=== PATIENT | female | born 1990 | race African-American/Black ===

== ENCOUNTER 2017-07-01 05:21 | Day surgery (SDC) | payer OTHER ==
[2017-06-25 13:01] VITALS: BMI 27.4
--- NOTE | 2017-07-01 08:14 | HP ---
Satellite [facility] - Chief Complaint Chief Complaint: Ovarian Cystectomy History Source: Patient - Past Medical History Allergies/Adverse Reactions: Allergies Allergy/AdvReac Type Severity Reaction Status Date / Time No Known Allergies Allergy Verified 07/01/17 07:04 ...LMP: 06/18/17 - Current Medications Current Medications: Home Medications Medication Instructions Recorded Isoniazid [INH -] 100 mg PO HS 06/25/17 Pyridoxine HCl [Vitamin B-6] 1 mg PO HS 06/25/17 Satellite Physical Exam - Physical Examination Vital Signs: Vital Signs Period Temp Pulse Resp BP Sys/Thornton Pulse Ox Last 24 Hr 98.3 F 62 16 110/74 100 General Appearance: Well Nourished ENT: Clear Lung: Clear to auscultation Heart: Regular rate & rhythm Breasts: Soft, Non-Tender Abdomen: Soft, No tenderness Extremities: No edema Neurological: Intact, Alert, Oriented Satellite Impression/Plan - Impression/Plan Impression: Ovarian Cyst Operative Procedure: Laparoscopic robotic ovarian cystectomy Date to be Performed: 07/01/17
--- NOTE | 2017-07-01 08:18 | OP ---
Operative Note - Note: Operative Date: 07/01/17 Pre-Operative Diagnosis: Ovarian cyst. Abdominal Pain Operation: Laparoscopic Robotic Cystectomy Findings: Right Dermoid ovarian cyst right corpus luteal cyst Post-Operative Diagnosis: Same as Pre-op Surgeon: Eda Cantu Web Application Developer: Aria Srinivasan Anesthesia: General Operative Report Dictated: Yes
[2017-07-01] MEDS ORDERED: oxyCODONE HCL 5 MG TABLET PO PRN (08:20)
[2017-07-01] MEDS ORDERED: IBUPROFEN 400 MG TABLET (FP) PO PRN (08:20)
[2017-07-01] MEDS ORDERED: ACETAMINOPHEN 325 MG TABLET (FP) PO PRN (08:20)
[2017-07-01] MEDS ORDERED: BUPIVACAINE HCL/PF 0.5% (5MG/ML) 10 ML VIAL ONE (08:26)
[2017-07-01] MEDS ORDERED: ceFAZolin SODIUM 1 GM VIAL IVPB ONE (08:30)
[2017-07-01] MEDS ORDERED: BUPIVACAINE HCL/PF 0.5% (5MG/ML) 10 ML VIAL IJ ONE ×2 (08:41)
[2017-07-01] MEDS ORDERED: PROMETHAZINE HCL 25 MG/1 ML VIAL IVPUSH PRN (09:51)
[2017-07-01] MEDS ORDERED: LACTATED RINGERS SOLUTION 1,000 ML IV SCH (10:00)
[2017-07-01 12:55] VITALS: TEMP 97.5
[2017-07-01 14:27] VITALS: BP 108/73; PULSE 61
--- NOTE | 2017-07-02 08:52 | OP ---
DATE OF OPERATION: 07/01/2017 PREOPERATIVE DIAGNOSIS: Right ovarian cyst. OPERATION: Laparoscopic, robotic ovarian cystectomy. POSTOPERATIVE DIAGNOSIS: Right ovarian cyst. SURGEON: Gordon Martinez MD LOOM CONTROL CHAIN BUILDER: Aria Srinivasan DO ANESTHESIA: General. ANESTHESIOLOGIST: Silvio Dyer MD DESCRIPTION OF PROCEDURE: Patient was taken to the operating room and placed in dorsal lithotomy position, prepped and draped in the usual sterile fashion. A timeout was performed in accordance to hospital regulation. Ramirez catheter was inserted into the bladder. Attention was then drawn to the umbilicus where a 5-mm umbilical incision was made. A Veress needle was inserted into the cavity. Approximately 3-4 L of CO2 were insufflated in the cavity. Veress needle was then removed, and an 8-mm trocar was then inserted. Laparoscope and camera were attached. A vessel sealer port was inserted after scalpel incision was made in the upper abdomen. Another 8-mm incision was made parallel on the left side, and 2 right-sided 8-mm incisions were made on the left. Trocars were all inserted under direct visualization. Patient was placed in steep Trendelenburg, and the da Regan robot was side docked to the patient's bedside. Trocars were then inserted onto the da Regan robot. After all ports were confirmed placement, the bipolar and scissors was inserted on the right, and the Maryland was inserted on the left side under direct visualization. Attention was then drawn to the console where control of the console was done. The right cyst was noted to be about 5 cm in size and 2 cysts, a corpus luteal cyst as well as a dermoid cyst. Cautery was then used to open the dermoid cyst which was 5 cm. The corpus luteal cyst was about 3 cm. Ovarian cystectomy was then performed, and cysts were removed. Lots of hair was seen coming out of the cyst and possibly a tooth in the ovary. The corpus luteal cyst was also entered using EndoShears, and Maryland and bipolar were then used to remove the corpus luteal cyst away from the right ovary. Hemostasis was achieved using coagulation, and hemostasis was achieved. After hemostasis was achieved, irrigation was then done. An endobag was then inserted, and the specimen was then removed. Hemostasis was achieved. The abdomen was then suctioned. Trocars were then removed with instruments under direct visualization. Incisions were then closed using 4-0 Biosyn in subcuticular fashion. Wound was washed and dressed. Patient had tolerated the procedure well. Estimated blood loss was 25 mL. All incisions were closed. Steri-Strips placed. Wound was washed and dressed. Patient had tolerated the procedure well, was taken to recovery room in stable condition. GORDON MARTINEZ M.D. KISHAN/[id number]
--- NOTE | 2017-07-02 17:03 | PATH ---
Surgical Pathology Report Patient Name: MELY YORK [facility]. Rec. #: [id number] /Age/Gender: 1990 (Age: 27) / F Account: [id number] Location: [facility] SURGICAL Taken: 07/01/2017 Received: 07/01/2017 Reported: 07/02/2017 Physicians: Eda Cantu M.D. Specimen(s) Received RIGHT OVARIAN CYST Clinical History Ovarian cyst Final Diagnosis RIGHT OVARIAN CYST, EXCISION: MATURE CYSTIC TERATOMA. HEMORRHAGIC CORPUS LUTEUM PRESENT. NO IMMATURE ELEMENTS OR MALIGNANT FEATURES IDENTIFIED. Electronically Signed Kiran Montana M.D. Gross Description Received in formalin, labeled "right ovarian cyst" is a 22 gram, 5.5 x 5.5 x 2.2 cm aggregate of long and briceno tissue fragments along with abundant air. Portions of the tissue have a cystic configuration. Calcified material is present, and and in some areas it is grossly suggestive of portions of tooth. Housing Inspector sections are submitted in 4 cassettes with cassette for submitted for decalcification. [facility]/07/01/2017 [facility]/07/01/2017
== END 2017-07-01 14:00 | disposition home or self-care (01) ==
LOC: JASU-SURG 05:21
PROVIDERS: ATTEND Obstetrics & Gynecology
PROC: 0UB04ZZ Excision of Right Ovary, Percutaneous Endoscopic Approach (ICD-10-PCS; principal; 2017-07-01 08:00)
DX: N83.201 Unspecified ovarian cyst, right side (principal)
CPT/HCPCS: 84703; 88307-TC; 88311-TC; 94760

== ENCOUNTER 2018-02-17 15:40 | Emergency (ER) | payer OTHER ==
[2018-02-17 15:46] VITALS: BP 128/81; PULSE 88; TEMP 98.7; BMI 27.1
--- NOTE | 2018-02-17 15:47 | PDOC ---
Rapid Medical Evaluation Time Seen by Provider: 02/17/18 15:42 Medical Evaluation: Allergies Allergy/AdvReac Type Severity Reaction Status Date / Time No Known Allergies Allergy Verified 07/01/17 07:04 02/17/18 15:42 Having chest pain for 2 weeks intermittently. No recent injury travel, , no control use, Was seen in her MD office one week ago and was sent to a specilaist oil processing technician but doese not go for 2 days. ordered -ekg -cxr -ua -labs
[2018-02-17 18:33] LABS: HCG,QUALITATIVE URINE NEGATIVE
[2018-02-17 18:46] LABS: URINE APPEARANCE CLEAR; URINE BILIRUBIN NEGATIVE (<2.0 mg/dL); URINE BLOOD NEGATIVE (NEGATIVE); URINE COLOR STRAW; URINE GLUCOSE (UA) NEGATIVE (NEGATIVE); URINE KETONE NEGATIVE (NEGATIVE); URINE LEUK ESTERASE NEGATIVE (NEGATIVE); URINE NITRITE NEGATIVE (NEGATIVE); URINE PROTEIN NEGATIVE (NEGATIVE); URINE UROBILINOGEN NEGATIVE mg/dL (0.2-1.0)
[2018-02-17 19:23] LABS: EOS % 0.5 % (0-4.5); HEMATOCRIT 40.5 % (32.4-45.2); HEMOGLOBIN 13.7 GM/dL (10.7-15.3); LYMPH % 42.9 % (8-40); MCH 31.1 pg (25.7-33.7); MCHC 33.8 g/dl (32.0-36.0); MEAN CELL VOLUME 91.8 fl (80-96); MEAN PLT VOLUME 8.2 fl (7.5-11.1); MONO % 6.7 % (3.8-10.2); NEUT % 48.9 % (42.8-82.8); PLATELET COUNT 226 K/MM3 (134-434); RBC 4.41 M/mm3 (3.60-5.2); RDW 13.8 % (11.6-15.6)
[2018-02-17 19:54] LABS: ANION GAP 3 (8-16); BILIRUBIN,TOTAL 0.7 mg/dL (0.2-1.0); BLOOD UREA NITROGEN 12 mg/dL (7-18); CALCIUM 9.1 mg/dL (8.5-10.1); CHLORIDE 106 mmol/L (98-107); CO2 30 mmol/L (21-32); CREATININE 0.8 mg/dL (0.55-1.02); GLUCOSE,RANDOM 102 mg/dL (74-106); POTASSIUM 3.8 mmol/L (3.5-5.1); SGOT/AST 15 U/L (15-37); SGPT/ALT 27 U/L (12-78); SODIUM 139 mmol/L (136-145); TOT PROT 7.7 g/dl (6.4-8.2)
[2018-02-17 19:56] LABS: ALK PHOS 52 U/L (45-117)
--- NOTE | 2018-02-17 21:13 | PDOC ---
History of Present Illness - General History Source: Patient Exam Limitations: No Limitations <AlonsoSulaiman scott - Last Filed: 02/17/18 22:59> - General History Source: Patient Exam Limitations: No Limitations - History of Present Illness Initial Comments: 02/18/18 01:02 The patient is a 27 year old female with a PMH of a positive PPD test who presents to the emergency department with intermittent chest pain that began earlier today. The patient reports that she was at work today just standing up when the chest pain started. The patient describes her chest pain as sharp and lasts for about two minutes. The patient reports that she has been experiencing this sudden onset of intermittent chest pain for about 2 weeks. She reports that her chest pain radiates down to her upper left quadrant. The patient reports associated SOB when she gets her chest pain . She states that her SOB does not last long and is non exertional. The patient reports associated nausea and 1 episode of nausea earlier today when leaving work. The patient denies any abdominal pain , back pain, calf pain or cough. She denies any headache or dizziness. She denies any recent travel, hemoptysis, lower extremity swelling. The patient denies any fever chills, diarrhea or constipation. She Denies dysuria, frequency, urgency and hematuria. Allergies: NKA Past surgical history: Ovarian cyst removal Social history: No reported PCP: Dr. De Jesus <Hu Linder - Last Filed: 02/18/18 01:04> - General Chief Complaint: Chest Pain Stated Complaint: CHEST PAIN Time Seen by Provider: 02/17/18 15:42 Past History - Past Medical History Anemia: No Asthma: No Cancer: No Cardiac Disorders: No CVA: No COPD: No (HX OF T.B ON MEDS) CHF: No Dementia: No Diabetes: No GI Disorders: No Disorders: No HTN: No Hypercholesterolemia: No Liver Disease: No Seizures: No Thyroid Disease: No - Surgical History Abdominal Surgery: Yes (CYST OVARIES) - Suicide/Smoking/Psychosocial Hx Smoking Status: No Smoking History: Never smoked Have you smoked in the past 12 months: No Number of Cigarettes Smoked Daily: 0 Information on smoking cessation initiated: No Hx Alcohol Use: No Drug/Substance Use Hx: No Substance Use Type: None Hx Substance Use Treatment: No <Sulaiman Gupta - Last Filed: 02/17/18 22:59> <Hu Linder - Last Filed: 02/18/18 01:04> - Past Medical History Allergies/Adverse Reactions: Allergies Allergy/AdvReac Type Severity Reaction Status Date / Time No Known Allergies Allergy Verified 02/17/18 15:42 Home Medications: Ambulatory Orders Isoniazid [INH -] 100 mg PO HS 06/25/17 Pyridoxine HCl (Vitamin B6) [Vitamin B-6] 1 mg PO HS 06/25/17 Review of Systems - Review of Systems Able to Perform ROS?: Yes Comments:: 02/18/18 01:02 CONSTITUTIONAL: No reported: Fever, Chills, Diaphoresis, Generalized Weakness, Malaise, Loss of Appetite HEENT: No reported: Rhinorrhea, Nasal Congestion, Throat Pain, Throat Swelling, Difficulty Swallowing, Mouth Swelling, Ear Pain, Eye Pain, Visual Changes CARDIOVASCULAR: Reported(+) Chest pain No reported: Syncope, Palpitations, Irregular Heart Rate, Lightheadedness, Peripheral Edema RESPIRATORY: Reported No reported: Cough, Shortness of Breath, SHIELDS, Orthopnea, Wheezing, Stridor, Hemoptysis GASTROINTESTINAL: No reported: Abdominal pain, Abdominal Distension, Nausea, Vomiting, Diarrhea, Constipation, Melena, Hematochezia GENITOURINARY: No reported: Dysuria, Frequency, Urgency, Hesitancy, Flank Pain, Genital Pain MUSCULOSKELETAL: No reported: Myalgia, Arthralgia, Joint Swelling, Back pain, Neck Pain SKIN: No reported: Rash, Itching, Pallor HEMEATOLOGIC/IMMUNOLOGIC: No reported: Easy Bleeding, Easy Bruising, Lymphadenopathy, Frequent infections ENDOCRINE: No reported: Unexplained Weight Gain, Unexplained Weight Loss, Heat Intolerance , Cold Intolerance NEUROLOGIC: No reported: Headache, Focal Weakness, Paresthesias, Vertigo, Lightheadedness, Unsteady Gait, Seizure, Mental Status Changes, Incontinence PSYCHIATRIC: No reported: Anxiety, Depression <Hu Linder - Last Filed: 02/18/18 01:04> *Physical Exam - Vital Signs Last Vital Signs Temp Pulse Resp BP Pulse Ox 98.7 F 88 18 128/81 100 02/17/18 15:44 02/17/18 15:44 02/17/18 15:44 02/17/18 15:44 02/17/18 15:44 <Sulaiman Gupta - Last Filed: 02/17/18 22:59> - Vital Signs Last Vital Signs Temp Pulse Resp BP Pulse Ox 98.7 F 88 18 128/81 100 02/17/18 15:44 02/17/18 15:44 02/17/18 15:44 02/17/18 15:44 02/17/18 15:44 - Physical Exam Comments: 02/18/18 01:03 GENERAL: The patient is awake, alert, and fully oriented, Nontoxic - in no acute distress. HEAD: Normocephalic, atraumatic. EYES: extraocular movements intact, sclera anicteric, conjunctiva clear. ENT: Normal voice, Moist mucous membranes. NECK: Normal range of motion, supple without lymphadenopathy, JVD, or masses. LUNGS: Breath sounds equal, clear to auscultation bilaterally. No wheezes, no crackles, no rales. HEART: Regular rate and rhythm, normal S1 and S2 without murmur, rub or gallop. ABDOMEN: Soft, nontender, normoactive bowel sounds. No guarding, no rebound. No masses. EXTREMITIES: Normal range of motion, no edema. No clubbing or cyanosis. No cords, erythema, or tenderness. NEUROLOGICAL: No facial assymetry, Normal speech, normal gait. PSYCH: Normal mood, normal affect. SKIN: Warm, Dry, normal turgor, no rashes or lesions noted. <Hu Linder - Last Filed: 02/18/18 01:04> Heart Score/ECG Review - ECG Impressions Comment:: 02/17/18 21:15 Twelve-lead EKG was performed and reviewed by me. There is normal sinus rhythm with a normal rate. Rate of 71 The axis is normal. The intervals are normal. There is normal R wave progression There are no ST or T wave abnormalities. <Sulaiman Gupta - Last Filed: 02/17/18 22:59> ED Treatment Course - LABORATORY CBC & Chemistry Diagram: 02/17/18 19:10 02/17/18 19:10 - ADDITIONAL ORDERS Additional order review: Laboratory Results 02/17/18 02/17/18 19:10 18:18 Sodium 139 Potassium 3.8 Chloride 106 Carbon Dioxide 30 Anion Gap 3 L BUN 12 Creatinine 0.8 Creat Clearance w eGFR > 60 Random Glucose 102 Calcium 9.1 Total Bilirubin 0.7 D AST 15 ALT 27 Alkaline Phosphatase 52 Creatine Kinase 155 Troponin I < 0.02 Total Protein 7.7 Albumin 4.0 Urine Color Straw Urine Appearance Clear Urine pH 7.0 Ur Specific [place] 1.005 Urine Protein Negative Urine Glucose (UA) Negative Urine Ketones Negative Urine Blood Negative Urine Nitrite Negative Urine Bilirubin Negative Urine Urobilinogen Negative Ur Leukocyte Esterase Negative Urine HCG, Qual Negative 02/17/18 19:10 RBC 4.41 MCV 91.8 MCHC 33.8 RDW 13.8 MPV 8.2 Neutrophils % 48.9 Lymphocytes % 42.9 H Monocytes % 6.7 Eosinophils % 0.5 D Basophils % 1.0 <Sulaiman Gupta - Last Filed: 02/17/18 22:59> - LABORATORY CBC & Chemistry Diagram: 02/17/18 19:10 02/17/18 19:10 - ADDITIONAL ORDERS Additional order review: Laboratory Results 02/17/18 02/17/18 19:10 18:18 Sodium 139 Potassium 3.8 Chloride 106 Carbon Dioxide 30 Anion Gap 3 L BUN 12 Creatinine 0.8 Creat Clearance w eGFR > 60 Random Glucose 102 Calcium 9.1 Total Bilirubin 0.7 D AST 15 ALT 27 Alkaline Phosphatase 52 Creatine Kinase 155 Troponin I < 0.02 Total Protein 7.7 Albumin 4.0 Urine Color Straw Urine Appearance Clear Urine pH 7.0 Ur Specific [place] 1.005 Urine Protein Negative Urine Glucose (UA) Negative Urine Ketones Negative Urine Blood Negative Urine Nitrite Negative Urine Bilirubin Negative Urine Urobilinogen Negative Ur Leukocyte Esterase Negative Urine HCG, Qual Negative 02/17/18 19:10 RBC 4.41 MCV 91.8 MCHC 33.8 RDW 13.8 MPV 8.2 Neutrophils % 48.9 Lymphocytes % 42.9 H Monocytes % 6.7 Eosinophils % 0.5 D Basophils % 1.0 <Hu Linder - Last Filed: 02/18/18 01:04> Medical Decision Making - Medical Decision Making 02/17/18 21:15 02/17/18 21:09 27y 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 pt currenltly asypmtomatic pts exam unremarakble ddx - doubt acs, trop neg x 1 ?esopageal vs muscular spasms? no correlation to maxi dto suggest GI etiology inconsistent with pe/dissection ekg wnl trops, cbc, cmp wnl will obtain cxr, if neg for pulm pathology will dc with card fu on saturday as scheduled 02/17/18 22:59 cxr negative pt feeling asymtomatic will dc with pmd fu return precautions were discussed I discussed the physical exam findings, ancillary test results and final diagnoses with the patient. I answered all of the patient's questions. The patient was satisfied with the care received and felt comfortable with the discharge plan and treatment plan. The patient will call their primary care physician within 24 hours to arrange follow-up and will return to the Emergency Department with any new, persistent or worsening symptoms. <Sulaiman Gupta - Last Filed: 02/17/18 22:59> *DC/Admit/Observation/Transfer - Discharge Dispostion Admit: No <Sulaiman Gupta - Last Filed: 02/17/18 22:59> - Attestations Scribe Attestion: 02/18/18 01:04 Documentation prepared by Hu Linder, acting as biomedical photographer for Sulaiman Gupta MD. <Hu Linder - Last Filed: 02/18/18 01:04> Diagnosis at time of Disposition: Atypical chest pain - Discharge Dispostion Disposition: HOME Condition at time of disposition: Improved - Referrals Referrals: Cecy De Jesus [Primary Care Provider] - - Patient Instructions Printed Discharge Instructions: DI for Atypical Chest Pain Additional Instructions: Return to the emergency department immediately with ANY new, persistent or worsening symptoms including worsening pain, sob, or other concerns. You MUST call and follow up with your vegetable grower as scheduled on saturday for further evaluation of your symptoms. Results were discussed with you. Please make sure your doctor reviews the results of your emergency evaluation. - Post Discharge Activity
--- NOTE | 2018-02-18 10:37 | EKG ---
Test Reason : Blood Pressure : / mmHG Vent. Rate : 071 BPM Atrial Rate : 071 BPM P-R Int : 140 ms QRS Dur : 084 ms QT Int : 390 ms P-R-T Axes : 056 055 055 degrees QTc Int : 423 ms NORMAL SINUS RHYTHM POSSIBLE LEFT ATRIAL ENLARGEMENT BORDERLINE ECG NO PREVIOUS ECGS AVAILABLE Confirmed by MD Fredy, Bhupendra ([id number]) on 02/18/2018 10:36:50 AM Referred By: Confirmed By:Bhupendra Daniel MD
== END 2018-02-17 23:05 | disposition home or self-care (01) ==
LOC: JER 15:40
DX: R07.89 Other chest pain (principal); R76.11 Nonspecific reaction to tuberculin skin test without active tuberculosis
CPT/HCPCS: 36415; 71046-TC-FY; 80053; 81003; 82550; 82553; 84484; 84703; 85025; 93005; 93010; 99283-25

== ENCOUNTER 2018-05-18 11:48 | Emergency (ER) | payer OTHER ==
[2018-05-18 11:53] VITALS: BP 113/66; PULSE 79; TEMP 98.4; BMI 27.4
--- NOTE | 2018-05-18 12:36 | PDOC ---
History of Present Illness - General Chief Complaint: Eye Problem Stated Complaint: EYE PROBLEM Time Seen by Provider: 05/18/18 11:54 History Source: Patient Exam Limitations: No Limitations - History of Present Illness Initial Comments: CHIEF COMPLAINT: 28 y/o female with left eye injury. HISTORY OF PRESENT ILLNESS: The patient states she scratched her left eye with the corner of a menu last night. She states her vision is fine but it feels like there is sand in her eye. She does not wear contacts or glasses. Past History - Past Medical History Allergies/Adverse Reactions: Allergies Allergy/AdvReac Type Severity Reaction Status Date / Time No Known Allergies Allergy Verified 05/18/18 11:53 Home Medications: Ambulatory Orders Isoniazid [INH -] 100 mg PO HS 06/25/17 Pyridoxine HCl (Vitamin B6) [Vitamin B-6] 1 mg PO HS 06/25/17 Sulfacetamide Sodium 10% [Bleph-10] 2 drop OS Q2H #150 drops 05/18/18 Anemia: No Asthma: No Cancer: No Cardiac Disorders: No CVA: No COPD: No (HX OF T.B ON MEDS) CHF: No Dementia: No Diabetes: No GI Disorders: No Disorders: No HTN: No Hypercholesterolemia: No Liver Disease: No Seizures: No Thyroid Disease: No - Surgical History Abdominal Surgery: Yes (CYST OVARIES) - Suicide/Smoking/Psychosocial Hx Smoking Status: No Smoking History: Never smoked Have you smoked in the past 12 months: No Number of Cigarettes Smoked Daily: 0 Hx Alcohol Use: No Drug/Substance Use Hx: No Substance Use Type: None Hx Substance Use Treatment: No Review of Systems - Review of Systems Able to Perform ROS?: Yes Constitutional: No: Symptoms Reported HEENTM: Yes: Eye Pain (left eye). No: Blurred Vision, Tearing, Double Vision Neurological: No: Headache, Paresthesia *Physical Exam - Vital Signs Last Vital Signs Temp Pulse Resp BP Pulse Ox 98.4 F 79 18 113/66 99 05/18/18 11:50 05/18/18 11:50 05/18/18 11:50 05/18/18 11:50 05/18/18 11:50 - Physical Exam Comments: The patient is well appearing and ambulatory. General Appearance: Yes: Nourished, Appropriately Dressed. No: Apparent Distress HEENT: positive: EOMI, DEIDRE, Other (Fleurescein exam shows abrasion to left lower outer cornea) Neurologic: positive: para operator II-XII NML intact, Fully Oriented, Alert, Normal Mood/ Affect, Motor Strength 5/5 Medical Decision Making - Medical Decision Making A/P: 28 y/o female with left corneal abrasion. Will discharge to home with rx for bleph -10. Instructed her to avoid tv screens, phone screens, computer screens and sunlight until feeling better, use drops as prescribed and f/u with Dr. Webster tomorrow. The patient verbalizes understanding of all instructions, has no further questions and is awaiting discharge. *DC/Admit/Observation/Transfer Diagnosis at time of Disposition: Corneal abrasion, left Qualifiers: Encounter type: initial encounter Qualified Code(s): S05.02XA - Injury of conjunctiva and corneal abrasion without foreign body, left eye, initial encounter - Discharge Dispostion Disposition: HOME Condition at time of disposition: Good - Referrals Referrals: Opal Webster MD [Staff Physician] - - Patient Instructions Printed Discharge Instructions: DI for Corneal Abrasion Additional Instructions: Discharge INstructions: -You have a corneal abrasion; it should heal on its own -Eye drops were sent to your pharmacy; please use as prescribed -Call Dr. Webster tomorrow to schedule a follow up appointment for as soon as possible -Avoid television screens, computer screens, phone screens and the sunlight until feeling better. -Return to the ER with any worsening or concerning symptoms. - Post Discharge Activity Forms/Work/School Notes: Back to Work
== END 2018-05-18 12:51 | disposition home or self-care (01) ==
LOC: JERFT 11:48
DX: S05.02XA Injury of conjunctiva and corneal abrasion without foreign body, left eye, initial encounter (principal); W22.8XXA Striking against or struck by other objects, initial encounter; Y93.89 Activity, other specified; Y92.89 Other specified places as the place of occurrence of the external cause; Y99.8 Other external cause status; Z86.11 Personal history of tuberculosis
CPT/HCPCS: 99281-25

== ENCOUNTER 2018-09-04 07:55 | Day surgery (SDC) | payer OTHER ==
[2018-09-03 12:38] VITALS: BMI 28.2
--- NOTE | 2018-09-04 08:49 | HP ---
History & Physical Update - History History: No Change - Physical Physical: No Change - Assessment Assessment: No Change - Plan Plan: No Change (Carmenza presents for elective Robotic assisted lap ovarian cystecomy, no change since visit with Dr Cantu on 09/02)
[2018-09-04] MEDS ORDERED: oxyCODONE HCL 5 MG TABLET PO PRN ×2 (09:03)
[2018-09-04] MEDS ORDERED: ONDANSETRON 4 MG/2 ML VIAL IVPUSH PRN (09:03)
[2018-09-04] MEDS ORDERED: LACTATED RINGERS SOLUTION 1,000 ML IV SCH (09:15)
--- NOTE | 2018-09-04 09:20 | OP ---
Operative Note - Note: Operative Date: 09/04/18 Pre-Operative Diagnosis: right ovarian cyst Operation: Robotic laparoscopic ovarian cystectomy Findings: right dermoid cyst Post-Operative Diagnosis: Same as Pre-op Surgeon: Eda Cantu Passenger Service Supervisor: Breanne Liu Anesthesia: General Estimated Blood Loss (mls): 50 Operative Report Dictated: Yes
[2018-09-04] MEDS ORDERED: ceFAZolin SODIUM 1 GM VIAL IVPB ONE (09:27)
[2018-09-04] MEDS ORDERED: BUPIVACAINE HCL/PF 0.5% (5MG/ML) 10 ML VIAL ONE (10:09)
[2018-09-04] MEDS ORDERED: BUPIVACAINE HCL/PF 0.5% (5MG/ML) 10 ML VIAL IJ ONE (10:34)
--- NOTE | 2018-09-04 10:57 | SURG ---
Surgery Reservations Agent Note Reservations Agent: Karis Ramírez PA-C Date of Service: 09/04/18 Diagnosis: ovarian cyst Procedure: Robotic assisted laparoscopic ovarian cystectomy I was present for the entirety of the operative procedure. For further detail, please refer to operative report. Visit type - Case Type Case Type: Scheduled - New patient This patient is new to me today: Yes Date on this admission: 09/04/18
[2018-09-04] MEDS ORDERED: oxyCODONE HCL 5 MG TABLET ONE (14:31)
[2018-09-04 15:44] VITALS: TEMP 97.8
[2018-09-04 16:34] VITALS: BP 105/69; PULSE 92
--- NOTE | 2018-09-05 15:44 | PATH ---
Surgical Pathology Report Patient Name: MELY YORK [facility]. Rec. #: [id number] /Age/Gender: 1990 (Age: 28) / F Account: [id number] Location: [facility] SURGICAL Taken: 09/04/2018 Received: 09/04/2018 Reported: 09/05/2018 Physicians: Eda Cantu M.D. Specimen(s) Received DERMOID CYST OVARIAN RIGHT Clinical History Ovarian cyst Final Diagnosis OVARY, RIGHT, CYST, ROBOTIC LAPAROSCOPIC CYSTECTOMY: OVARY WITH MATURE CYSTIC TERATOMA. Electronically Signed Kady Cullen M.D. Gross Description Received in formalin labeled "dermoid ovarian right cyst," is a 6.0 x 5.4 x 1.2 cm portion of a markedly disrupted cyst. The outer surface is long-pink and smooth. There is hair present within the lumen. Sectioning reveals focal yellow soft tissue within the cyst wall. No normal ovarian parenchyma is identified. Slitting Machine Feeder sections are submitted in 7 cassettes. saudi/09/04/2018
--- NOTE | 2018-11-07 14:22 | OP ---
DATE OF OPERATION: 09/04/2018 PREOPERATIVE DIAGNOSIS: Right ovarian cyst. OPERATION: Robotic right laparoscopic ovarian cystectomy. POSTOPERATIVE DIAGNOSIS: Right dermoid cyst. SURGEON: Eda Cantu MD EXHIBITION DESIGNER: Karis Ramírez ANESTHESIA: General. ANESTHESIOLOGIST: Guero Gross MD PROCEDURE: Patient was taken to the operating room, placed in dorsal lithotomy position, prepped and draped in the usual sterile fashion. A timeout was performed in accordance with hospital regulation. A Ramirez catheter was inserted into the bladder, after patient had been prepped and draped. Attention was then drawn to the umbilicus where an 8-mm umbilical incision was made. Veress needle was inserted into the cavity. Approximately 3-4 L of CO2 was insufflated in the cavity. Veress needle was then removed and an 8-mm trocar was then inserted. The laparoscope and camera was attached. Visualization revealed a right ovarian cyst, left ovary was normal, tubes were normal. Trocars were placed two on the left and two on the right under direct visualization, 8 mm incisions were made parallel to the incision, and one upper left 5-mm incision was then made. AirSeal cannula was inserted. Trocar was inserted. Laparoscope and camera was attached, after da Regan robot was side docked to patient's bedside. Trocars were then inserted. Instruments were then inserted under direct visualization, Endoshears were inserted, bipolar grasper, as well as another marley was inserted on the right side. Attention was then drawn to the console where visualization revealed a right ovarian cyst. Grasp of the cyst was then done with the bipolars and the [place] and cyst was entered with the Endoshears. Grasper was then used to remove the right dermoid cyst which was hidden into another cyst. Using sharp and blunt technique, the dermoid cyst was then removed. Cauterization of the ovary was then done. Hemostasis was achieved. Ovary was left in good condition. Dermoid cyst was then removed through the trocar, after placed in the bag. CO2 was removed from the abdomen. The da Regan robot was undocked and removed from the patient's bedside. Trocars were then removed. Incisions were closed using 4-0 Biosyn suture in subcuticular fashion. The wound was washed and dressed. Patient tolerated procedure well. Estimated blood loss was 50 mL. Ramirez catheter was then removed from the patient. The wound was washed and dressed. Patient tolerated procedure well and was taken to recovery room in stable condition. Poppy [id number] MTDD
== END 2018-09-04 16:35 | disposition home or self-care (01) ==
LOC: JASU-SURG 07:55
PROVIDERS: ATTEND Obstetrics & Gynecology
PROC: 0UB04ZZ Excision of Right Ovary, Percutaneous Endoscopic Approach (ICD-10-PCS; principal; 2018-09-04 10:00)
DX: D27.0 Benign neoplasm of right ovary (principal)
CPT/HCPCS: 88305-TC; 94760

== ENCOUNTER 2019-01-09 07:30 | Emergency (ER) | payer OTHER ==
[2019-01-09 08:03] VITALS: BP 122/73; PULSE 66; TEMP 98.2; BMI 29.0
--- NOTE | 2019-01-09 08:25 | PDOC ---
History of Present Illness - General History Source: Patient - History of Present Illness Timing/Duration: reports: getting worse <Alissa WattMelissa - Last Filed: 01/09/19 10:27> <Aletha Dupont - Last Filed: 01/11/19 09:47> - General Chief Complaint: Pain Stated Complaint: ABD PAIN/LOWER BACK PAIN Time Seen by Provider: 01/09/19 08:22 Past History - Past Medical History Anemia: No Asthma: No Cancer: No Cardiac Disorders: No CVA: No COPD: No CHF: No Dementia: No Diabetes: No GI Disorders: No Disorders: No HTN: No Hypercholesterolemia: No Liver Disease: No Seizures: No Thyroid Disease: No - Surgical History Abdominal Surgery: Yes (CYST OVARIES) - Immunization History Immunization Up to Date: Yes - Suicide/Smoking/Psychosocial Hx Smoking Status: No Smoking History: Never smoked Have you smoked in the past 12 months: No Number of Cigarettes Smoked Daily: 0 Information on smoking cessation initiated: No Hx Alcohol Use: No Drug/Substance Use Hx: No Substance Use Type: Alcohol Hx Substance Use Treatment: No <Nita Watt - Last Filed: 01/09/19 10:27> <Aletha Dupont - Last Filed: 01/11/19 09:47> - Past Medical History Allergies/Adverse Reactions: Allergies Allergy/AdvReac Type Severity Reaction Status Date / Time No Known Allergies Allergy Verified 01/09/19 07:47 Home Medications: Ambulatory Orders Oxycodone HCl/Acetaminophen [Percocet 5-325 mg Tablet] 1 - 2 tab PO Q4H PRN #20 tablet MDD 6 09/04/18 Review of Systems - Review of Systems Constitutional: No: Chills, Fever : No: Burning, Dysuria, Discharge, Flank Pain, Hematuria, Lesions Musculoskeletal: Yes: Back Pain <Nita Watt - Last Filed: 01/09/19 10:27> *Physical Exam - Vital Signs Last Vital Signs Temp Pulse Resp BP Pulse Ox 98.2 F 66 17 122/73 100 01/09/19 07:58 01/09/19 07:58 01/09/19 07:58 01/09/19 07:58 01/09/19 07:58 - Physical Exam General Appearance: Yes: Appropriately Dressed. No: Apparent Distress HEENT: positive: Normal Voice Neck: positive: Supple Respiratory/Chest: negative: Respiratory Distress Female Pelvic Exam: positive: normal external exam, normal adnexa. negative: CMT, discharge, lesions, vaginal bleeding Gastrointestinal/Abdominal: positive: Normal Bowel Sounds, Tender (minimal ttp over L suprapubic area), Soft. negative: Distended, Guarding, Rebound Musculoskeletal: negative: CVA Tenderness Integumentary: positive: Dry, Warm Neurologic: positive: Fully Oriented, Alert, Normal Mood/Affect <Nita Watt - Last Filed: 01/09/19 10:27> - Vital Signs Last Vital Signs Temp Pulse Resp BP Pulse Ox 98.2 F 66 17 122/73 100 01/09/19 07:58 01/09/19 07:58 01/09/19 07:58 01/09/19 07:58 01/09/19 07:58 <Aletha Dupont - Last Filed: 01/11/19 09:47> Moderate Sedation - Procedure Monitoring Vital Signs: Procedure Monitoring Vital Signs Temperature 98.2 F 01/09/19 07:58 Pulse Rate 66 01/09/19 07:58 Respiratory Rate 17 01/09/19 07:58 Blood Pressure 122/73 01/09/19 07:58 O2 Sat by Pulse Oximetry (%) 100 01/09/19 07:58 <Nita Watt - Last Filed: 01/09/19 10:27> - Procedure Monitoring Vital Signs: Procedure Monitoring Vital Signs Temperature 98.2 F 01/09/19 07:58 Pulse Rate 66 01/09/19 07:58 Respiratory Rate 17 01/09/19 07:58 Blood Pressure 122/73 01/09/19 07:58 O2 Sat by Pulse Oximetry (%) 100 01/09/19 07:58 <Aletha Dupont - Last Filed: 01/11/19 09:47> ED Treatment Course - LABORATORY CBC & Chemistry Diagram: 01/09/19 08:40 01/09/19 08:40 <Nita Watt - Last Filed: 01/09/19 10:27> - LABORATORY CBC & Chemistry Diagram: 01/09/19 08:40 01/09/19 08:40 - ADDITIONAL ORDERS Additional order review: 01/09/19 08:40 RBC 4.56 MCV 92.2 MCHC 34.0 RDW 13.4 MPV 8.2 Neutrophils % 51.9 Lymphocytes % 38.9 Monocytes % 6.8 Eosinophils % 1.5 D Basophils % 0.9 <Aletha Dupont - Last Filed: 01/11/19 09:47> Medical Decision Making - Medical Decision Making 01/09/19 08:22 28-year-old female, s/p multiple surgeries for b/l ovarian cysts, LMP a week ago and normal, here w/ worsening pelvic pain. Pt reports intermittent, sharp, L pelvic pain radiating to lower back that became constant yesterday, 07/21, improves w/ alleve. No dysuria, hematuria, change in BM, n/v/f/c. Reports that pain my be similar to pain w/ prior cysts. Pt states she might have had chlamydia as a teenager that was tx. No vag discharge, odor, itch and no new sexual partners per pt See exam R/o torsion vs UTI vs , less likely PID, renal colic or appy Stable w/ -US -labs/ua 01/09/19 10:52 Labs and UA unremarkable. Ultrasound read as small R ovarian cyst, no evidence of torsion. Patient currently asymptomatic with no tenderness on repeat abdominal exam. Case discussed with Dr. Dupont who agrees that patient can be discharged to follow-up with her BELT SPLICER. Return instructions given to patient <Nita Watt - Last Filed: 01/09/19 10:27> *DC/Admit/Observation/Transfer <Nita Watt - Last Filed: 01/09/19 10:27> - Attestations Physician Attestion: I reviewed the case with the mid-level practitioner and agree with the mid- level practitioner's assessment, diagnosis and disposition. <Aletha Dupont - Last Filed: 01/11/19 09:47> Diagnosis at time of Disposition: Pelvic pain - Discharge Dispostion Disposition: HOME Condition at time of disposition: Improved - Referrals Referrals: Cecy De Jesus [Primary Care Provider] - - Patient Instructions Printed Discharge Instructions: DI for Pelvic Pain Additional Instructions: The cause of your pelvic pain is unclear at this time as your labs and ultrasound did not reveal an obvious source If pain persists/worsen, return to the ED and at that point we will do further testing Otherwise, please follow up with your BELT SPLICER as needed - Post Discharge Activity Forms/Work/School Notes: Back to Work
[2019-01-09 08:53] LABS: BASO % 0.9 % (0-2.0); EOS % 1.5 % (0-4.5); HEMOGLOBIN 14.3 GM/dL (10.7-15.3); LYMPH % 38.9 % (8-40); MCH 31.3 pg (25.7-33.7); MEAN CELL VOLUME 92.2 fl (80-96); MEAN PLT VOLUME 8.2 fl (7.5-11.1); MONO % 6.8 % (3.8-10.2); NEUT % 51.9 % (42.8-82.8); PLATELET COUNT 185 K/MM3 (134-434); RBC 4.56 M/mm3 (3.60-5.2); RDW 13.4 % (11.6-15.6); WHITE BLOOD COUNT 5.1 K/mm3 (4.0-10.0)
[2019-01-09 09:05] LABS: HCG,QUALITATIVE URINE Negative
[2019-01-09 09:12] LABS: URINE APPEARANCE SLCLOUDY; URINE BILIRUBIN NEGATIVE (<2.0 mg/dL); URINE COLOR DKYELLOW; URINE GLUCOSE (UA) NEGATIVE (NEGATIVE); URINE KETONE NEGATIVE (NEGATIVE); URINE LEUK ESTERASE NEGATIVE (NEGATIVE); URINE NITRITE NEGATIVE (NEGATIVE); URINE PROTEIN NEGATIVE (NEGATIVE)
[2019-01-09 09:29] LABS: ALK PHOS 53 U/L (45-117); ANION GAP 5 MMOL/L (8-16); BILIRUBIN,TOTAL 0.8 mg/dL (0.2-1); BLOOD UREA NITROGEN 9 mg/dL (7-18); CHLORIDE 104 mmol/L (98-107); CO2 31 mmol/L (21-32); CREATININE 0.8 mg/dL (0.55-1.3); GLUCOSE,RANDOM 67 mg/dL (74-106); POTASSIUM 3.5 mmol/L (3.5-5.1); SGOT/AST 10 U/L (15-37); SGPT/ALT 19 U/L (13-61); SODIUM 140 mmol/L (136-145); TOT PROT 7.6 g/dl (6.4-8.2)
== END 2019-01-09 11:03 | disposition home or self-care (01) ==
LOC: JER 07:30
DX: R10.2 Pelvic and perineal pain (principal)
CPT/HCPCS: 36415; 76830-TC; 76856-TC; 80053; 81003; 84703; 85025; 87491; 87591; 99282-25

== ENCOUNTER 2019-03-16 17:16 | Emergency (ER) | payer OTHER ==
[2019-03-16 17:30] VITALS: BP 135/76; PULSE 75; TEMP 98.9; BMI 28.2
--- NOTE | 2019-03-16 17:30 | PDOC ---
Rapid Medical Evaluation Time Seen by Provider: 03/16/19 17:26 Medical Evaluation: Allergies Allergy/AdvReac Type Severity Reaction Status Date / Time No Known Allergies Allergy Verified 01/09/19 07:47 03/16/19 17:26 I have performed a brief in-person evaluation of this patient. The patient presents with a chief complaint of rash x 1month. Reports rash on trunk x 1 month with itching states seen at [facility] given cream but with no complete relief of symptoms. Pertinent physical exam findings: NAD even and unlabored breathing +dry scaly patches noted on anterior upper chest I have ordered the following The patient will proceed to the ED for further evaluation. Discharge Disposition - Diagnosis Rash and nonspecific skin eruption - Referrals - Patient Instructions - Post Discharge Activity
--- NOTE | 2019-03-16 18:31 | PDOC ---
History of Present Illness - General Chief Complaint: Rash Stated Complaint: RASH WITH ITCHING X1MO Time Seen by Provider: 03/16/19 17:26 History Source: Patient Exam Limitations: No Limitations Past History - Travel Traveled outside of the country in the last 30 days: No Close contact w/someone who was outside of country & ill: No - Past Medical History Allergies/Adverse Reactions: Allergies Allergy/AdvReac Type Severity Reaction Status Date / Time No Known Allergies Allergy Verified 01/09/19 07:47 Home Medications: Ambulatory Orders Oxycodone HCl/Acetaminophen [Percocet 5-325 mg Tablet] 1 - 2 tab PO Q4H PRN #20 tablet MDD 6 09/04/18 Cetirizine HCl [Zyrtec -] 10 mg PO DAILY #30 tablet 03/16/19 Clobetasol Propionate/Emoll [Clobetasol Emollient 0.05% Crm] 60 gm TP BID #1 tube 03/16/19 Anemia: No Asthma: No Cancer: No Cardiac Disorders: No CVA: No COPD: No CHF: No Dementia: No Diabetes: No GI Disorders: No Disorders: No HTN: No Hypercholesterolemia: No Liver Disease: No Seizures: No Thyroid Disease: No - Surgical History Abdominal Surgery: Yes (CYST OVARIES) - Immunization History Immunization Up to Date: Yes - Suicide/Smoking/Psychosocial Hx Smoking Status: No Smoking History: Never smoked Have you smoked in the past 12 months: No Number of Cigarettes Smoked Daily: 0 Hx Alcohol Use: No Drug/Substance Use Hx: No Substance Use Type: Alcohol Hx Substance Use Treatment: No Review of Systems - Review of Systems Able to Perform ROS?: Yes Comments:: 03/16/19 18:27 CONSTITUTIONAL: Absent: fever, chills, diaphoresis, generalized weakness, malaise, loss of appetite HEENT: Absent: rhinorrhea, nasal congestion, throat pain, throat swelling, difficulty swallowing, mouth swelling, ear pain, eye pain, visual Changes MUSCULOSKELETAL: Absent: myalgia, arthralgia, joint swelling SKIN: Present: rash Absent: rash, itching, pallor NEUROLOGIC: Absent: headache, focal weakness or paresthesias, dizziness, unsteady gait, seizure, mental status changes, bladder or bowel incontinence Is the patient limited Kyrgyz proficient: No *Physical Exam - Vital Signs Last Vital Signs Temp Pulse Resp BP Pulse Ox 98.9 F 75 16 135/76 100 03/16/19 17:27 03/16/19 17:27 03/16/19 17:27 03/16/19 17:27 03/16/19 17:27 - Physical Exam Comments: 03/16/19 18:28 GENERAL: The patient is awake, alert, and fully oriented, in no acute distress. HEAD: Normal with no signs of trauma. EYES: Pupils equal, round and reactive to light, extraocular movements intact, sclera anicteric, conjunctiva clear. EXTREMITIES: Normal range of motion, no edema. NEUROLOGICAL: Normal speech, normal gait. PSYCH: Normal mood, normal affect. SKIN: Purutic Hyper pigmented papules to the chest and neck. No evidence of secondary infection. Warm, Dry, normal turgor, no lesions noted. *DC/Admit/Observation/Transfer Diagnosis at time of Disposition: Rash and nonspecific skin eruption - Discharge Dispostion Disposition: HOME Condition at time of disposition: Stable Decision to Admit order: No - Referrals Referrals: Cecy De Jesus [Primary Care Provider] - Silvia Brantley MD [Staff Physician] - - Patient Instructions Printed Discharge Instructions: DI for Rash Additional Instructions: you were evaluated for your rash today. It is most likely not fungal in nature as it did not improve with antifungal cream. Please use the clobetasol twice a day to the affected area. Did not put this medication on the nipples. Take a daily Zyrtec. Follow-up with dermatology. A referral has been provided for you. Return to the ER for any new or worsening symptoms - Post Discharge Activity Forms/Work/School Notes: Back to Work
== END 2019-03-16 18:40 | disposition home or self-care (01) ==
LOC: JERFT 17:16
DX: R21 Rash and other nonspecific skin eruption (principal)
CPT/HCPCS: 99281-25

== ENCOUNTER 2019-10-17 10:49 | Emergency (ER) | payer OTHER ==
[2019-10-17 10:55] VITALS: BP 117/79; PULSE 64; TEMP 97.9; BMI 29.0
[2019-10-17] MEDS ORDERED: KETOROLAC TROMETHAMINE 60 MG/2 ML VIAL IM ONE (11:37)
[2019-10-17] MEDS ORDERED: CYCLOBENZAPRINE HCL 10 MG TABLET (FP) PO ONE (11:37)
[2019-10-17] MEDS ORDERED: KETOROLAC TROMETHAMINE 60 MG/2 ML VIAL ONE (11:52)
[2019-10-17] MEDS ORDERED: CYCLOBENZAPRINE HCL 10 MG TABLET (FP) ONE (11:53)
--- NOTE | 2019-10-17 12:11 | PDOC ---
History of Present Illness - General Chief Complaint: Pain, Acute Stated Complaint: RT SIDE PAIN Time Seen by Provider: 10/17/19 11:08 History Source: Patient Exam Limitations: No Limitations - History of Present Illness Initial Comments: 10/17/19 11:53 29 y/o female presents to ED with c/o right sided chest pain worse with movement x 3 days. Patient states was traveling and the next day woke up with discomfort from her right shoulder to her breast plate patient states pain is worsened with movement and deep breathing and denies any rash, bruising, or radiation of pain to the left side. Patient states took nothing for the pain and decided come to the ER for further evaluation. Is this a multiple visit Asthma Patient?: No Severity: mild Associated Symptoms: reports: denies symptoms Past History - Travel Traveled outside of the country in the last 30 days: No Close contact w/someone who was outside of country & ill: No - Past Medical History Allergies/Adverse Reactions: Allergies Allergy/AdvReac Type Severity Reaction Status Date / Time No Known Allergies Allergy Verified 10/17/19 10:51 Anemia: No Asthma: No Cancer: No Cardiac Disorders: No CVA: No COPD: No CHF: No Dementia: No Diabetes: No GI Disorders: No Disorders: No HTN: No Hypercholesterolemia: No Liver Disease: No Seizures: No Thyroid Disease: No - Surgical History Abdominal Surgery: Yes (CYST OVARIES) - Immunization History Immunization Up to Date: Yes - Psycho Social/Smoking Cessation Hx Smoking Status: No Smoking History: Never smoked Have you smoked in the past 12 months: No Number of Cigarettes Smoked Daily: 0 Hx Alcohol Use: No Drug/Substance Use Hx: No Substance Use Type: Alcohol Hx Substance Use Treatment: No Patient Lives Alone: No Lives with/in: spouse/SO Review of Systems - Review of Systems Able to Perform ROS?: No Is the patient limited Thai proficient: No Constitutional: No: Symptoms Reported HEENTM: No: Symptoms Reported Respiratory: No: Symptoms reported Cardiac (ROS): No: Symptoms Reported ABD/GI: No: Symptoms Reported : No: Symptoms Reported Musculoskeletal: Yes: Muscle Pain Integumentary: No: Symptoms Reported Neurological: No: Symptoms reported, Numbness, Weakness, Dizziness *Physical Exam - Vital Signs Last Vital Signs Temp Pulse Resp BP Pulse Ox 97.9 F 64 16 117/79 100 10/17/19 10:52 10/17/19 10:52 10/17/19 10:52 10/17/19 10:52 10/17/19 10:52 - Physical Exam General Appearance: Yes: Nourished, Appropriately Dressed. No: Apparent Distress Neck: positive: Supple. negative: Tender, Decreased range of motion Respiratory/Chest: positive: Chest Tender (Right pectoral from sternum extending to anterior aspect of right shoulder), Lungs Clear, Normal Breath Sounds. negative: Respiratory Distress, Accessory Muscle Use Cardiovascular: positive: Regular Rhythm, Regular Rate. negative: Murmur Gastrointestinal/Abdominal: positive: Soft. negative: Tenderness Musculoskeletal: negative: CVA Tenderness, Vertebral Tenderness Extremity: positive: Normal Inspection, Normal Range of Motion Integumentary: positive: Normal Color, Warm, Moist Neurologic: positive: Motor Strength 5/5 (Ambulatory. Noted discomfort with hyperextension of right arm posteriorly) Medical Decision Making - Medical Decision Making 10/17/19 12:[address] Patient has no other complaints at this time no meds taken. Exam. Patient reproducible right pectoral tenderness. Plan: Likely muscle skeletal patient order for Flexeril and Toradol 10/17/19 12:23 Pt states feeling better and recommend avoiding certain movements that trigger discomfort. Patient also recommended to use a heating pad. Patient sent with flexeril/Motrin Discharge - Discharge Information Problems reviewed: Yes Clinical Impression/Diagnosis: Strain of right pectoralis muscle Condition: Improved Disposition: HOME - Follow up/Referral Referrals: Cecy De Jesus [Primary Care Provider] - - Patient Discharge Instructions Patient Printed Discharge Instructions: DI for Musculoskeletal Pain Additional Instructions: Avoid movements that trigger discomfort. May apply heating pad to the area for 15 minutes 3-4 times a day. Take Motrin and Flexeril as prescribed but do not operate any heavy machinery while taking the Flexeril. - Post Discharge Activity
== END 2019-10-17 13:08 | disposition home or self-care (01) ==
LOC: JER 10:49
PROC: 3E0233Z Introduction of Anti-inflammatory into Muscle, Percutaneous Approach (ICD-10-PCS; principal; 2019-10-17)
DX: S46.911A Strain of unspecified muscle, fascia and tendon at shoulder and upper arm level, right arm, initial encounter (principal); X58.XXXA Exposure to other specified factors, initial encounter; Y93.89 Activity, other specified; Y92.89 Other specified places as the place of occurrence of the external cause; N83.209 Unspecified ovarian cyst, unspecified side
CPT/HCPCS: 96372; 99281-25

== ENCOUNTER 2023-12-28 04:31 | Inpatient (IN) | payer OTHER ==
[2023-12-28] MEDS ORDERED: ACETAMINOPHEN INJECTION 100 ML IVPB ONE (04:41)
[2023-12-28] MEDS: ACETAMINOPHEN 1000 MG/100 ML BAG IVPB ONE (05:08)
[2023-12-28] MEDS: SODIUM CHLORIDE 0.9% 500 ML INFUS.BAG IV ONE (05:08)
[2023-12-28] MEDS ORDERED: MAGNESIUM SULFATE IN WATER 2 GM/50 ML IVPB IVPB ONE (05:08)
[2023-12-28 05:11] VITALS: BMI 28.2
[2023-12-28] MEDS: CEFTRIAXONE 1 GM in DEXTROSE 5%-WATER - 50 ML IVPB ONE (05:11)
[2023-12-28] MEDS ORDERED: VANCOMYCIN 1 GRAM (PRE-DOCKED) 1,000 MG/250 ML BAG IVPB ONE ×2 (05:14→05:17)
[2023-12-28] MEDS ORDERED: PIPERACILLIN/TAZOB 4.5 GM 4.5 GM/100 ML BAG IVPB ONE (05:17)
[2023-12-28] MEDS: PIPERACILLIN/TAZOB 4.5 GM 4.5 GM in DEXTROSE 5%-WATER 100 ML IVPB ONE (05:27)
[2023-12-28 05:57] LABS: CHLORIDE 83 mmol/L (98-107); POTASSIUM 5.1 mmol/L (3.5-5.1); SODIUM 124 mmol/L (136-145)
[2023-12-28 05:59] LABS: CALCIUM 10.4 mg/dL (8.5-10.1)
[2023-12-28 06:00] LABS: ALBUMIN 1.7 g/dl (3.4-5.0); ANION GAP 28 mmol/L (4-13); BLOOD UREA NITROGEN 54.6 mg/dL (7-18); CO2 13 mmol/L (21-32); GLUCOSE,RANDOM 265 mg/dL (74-106); INR 1.52 (0.83-1.09); PROTHROMBIN TIME (PATIENT) 17.6 SEC (9.7-13.0)
[2023-12-28 06:03] LABS: SGOT/AST 962 U/L (15-37); SGPT/ALT 672 U/L (13-61)
[2023-12-28 06:05] LABS: TOT PROT 4.4 g/dl (6.4-8.2)
[2023-12-28] MEDS ORDERED: RAPID SEQUENCE INTUBATION KIT NR ONE (06:05)
[2023-12-28 06:06] LABS: ALK PHOS 48 U/L (45-117)
[2023-12-28] MEDS ORDERED: ROCURONIUM BROMIDE 50 MG/5 ML SYRINGE ONE (06:09)
[2023-12-28] MEDS: NOREPINEPHRINE BITARTRATE/D5W 8 MG/250 ML BAG IVPB SCH (06:21)
[2023-12-28] MEDS: PROPOFOL 1,000,000 MCG/100 ML VIAL IVPB SCH (06:21)
[2023-12-28] MEDS: VANCOMYCIN 1 GRAM (PRE-DOCKED) 1,000 MG/250 ML BAG IVPB ONE (06:21)
[2023-12-28] MEDS: ROCURONIUM BROMIDE 50 MG/5 ML VIAL IV ONE (06:22)
[2023-12-28 06:25] LABS: LACTIC ACID 14.4 mmol/L (0.4-2.0)
[2023-12-28 06:26] LABS: CREATININE 9.6 mg/dL (0.55-1.3)
[2023-12-28] MEDS: VANCOMYCIN 1,000 MG in DEXTROSE 5%-WATER - 250 ML IVPB ONE (06:29)
[2023-12-28 06:46] LABS: HEMATOCRIT 24.7 % (32.4-45.2); HEMOGLOBIN 7.9 GM/dL (10.7-15.3); MCH 29.3 pg (25.7-33.7); MCHC 32.1 g/dl (32.0-36.0); MEAN CELL VOLUME 91.2 fl (80-96); MEAN PLT VOLUME 8.9 fl (7.5-11.1); RBC 2.71 M/mm3 (3.60-5.2)
[2023-12-28 07:08] LABS: PLATELET COUNT 23 10^3/uL (134-434)
[2023-12-28 07:32] LABS: ANION GAP 23 mmol/L (4-13); CALCIUM 6.8 mg/dL (8.5-10.1); CHLORIDE 93 mmol/L (98-107); CO2 10 mmol/L (21-32); GLUCOSE,RANDOM 156 mg/dL (74-106); POTASSIUM 5.3 mmol/L (3.5-5.1); SODIUM 126 mmol/L (136-145)
[2023-12-28] MEDS: VASopressin 40 UNITS/100 ML BAG IV SCH (08:20)
[2023-12-28 08:47] LABS: MAGNESIUM 3.6 mg/dL (1.8-2.4)
[2023-12-28] MEDS ORDERED: EPINEPHrine 1:10,000 (P-F SYR) 1 MG/10 ML DISP.SYRIN ONE (09:04)
[2023-12-28] MEDS ORDERED: CALCIUM CHLORIDE 1 GM/10 ML *DISP.SYRIN ONE ×2 (09:08→09:11)
[2023-12-28 09:24] VITALS: RESP 26
[2023-12-28] MEDS ORDERED: MUPIROCIN 2% TOPICAL OINTMENT FOR DECOLONIZATION NS SCH (10:00)
[2023-12-28 11:43] LABS: ANISOCYTOSIS 0; HELMET CELLS 0; HOWELL-JOLLY BODIES 0; MACROCYTOSIS 0; OVALOCYTE 0; ROULEAU 0; SICKELED CELLS 0; TARGET CELLS 0; TEAR DROP CELLS 0; TOXIC GRANULATION 0
[2023-12-28 13:14] VITALS: BP 81/69; PULSE 114; TEMP 95.9
[2023-12-28] MEDS ORDERED: CHLORHEXIDINE GLUCONATE 4% CLEANSER FOR DECOLONIZATION TP SCH (22:00)
== END 2023-12-28 14:15 | disposition expired | DRG 296 ==
LOC: JER 04:31 → JERBED 05:17 → UNDOADMIN 05:39 → JICU 07:53
PROVIDERS: ADMIT Internal Medicine Pulmonary Disease; ATTEND Internal Medicine Pulmonary Disease
PROC: 06HM33Z Insertion of Infusion Device into Right Femoral Vein, Percutaneous Approach (ICD-10-PCS; principal; 2023-12-28)
PROC: 5A1935Z Respiratory Ventilation, Less than 24 Consecutive Hours (ICD-10-PCS; 2023-12-28)
DX: I46.9 Cardiac arrest, cause unspecified (principal); K72.00 Acute and subacute hepatic failure without coma; E87.1 Hypo-osmolality and hyponatremia; N17.9 Acute kidney failure, unspecified; M62.82 Rhabdomyolysis; G93.1 Anoxic brain damage, not elsewhere classified; E87.8 Other disorders of electrolyte and fluid balance, not elsewhere classified; C50.919 Malignant neoplasm of unspecified site of unspecified female breast; R74.01 Elevation of levels of liver transaminase levels; R19.7 Diarrhea, unspecified; E86.0 Dehydration
CPT/HCPCS: 0241U-QW; 70450-TC; 71045-TC-FY; 71250-TC; 72125-TC; 74176-TC; 80048; 80053; 82550; 82553; 83605; 83690; 83735; 84484; 84702; 85025; 85379; 85384; 85610; 86850; 86900; 86901; 87040; 87186; 93005; 93010; 99285-25; J0131; J3490